=== PATIENT | male | born 1970 | race Two or more races ===

== ENCOUNTER 2024-12-04 22:04 | Emergency (ER) | payer OTHER ==
[~2024-12-04] VITALS: Ht 175.3 cm; Wt 68.0 kg
[2024-12-04 22:08] VITALS: BP 126/86; TEMP 97.7; O2SAT 99
[2024-12-05] MEDS: IV NS 0.9% 1,000 ML IV ONE (01:30)
== END 2024-12-05 03:18 | disposition home or self-care (01) ==
LOC: ER 22:06
DX: R53.1 Weakness (principal); R53.83 Other fatigue
CPT/HCPCS: 71045-TC; J7030